=== PATIENT | male | born 1980 | race Caucasian/White ===

== ENCOUNTER 2025-02-17 10:07 | Outpatient (CLI) | payer OTHER, SELFPAY ==
--- NOTE | 2025-02-17 10:15 | ECG_ITS ---
Test Date: 2025-02-17 10:22:43 Measurements Intervals [place] Rate: 76 P: 32 IA: 150 QRS: 4 QRSD: 101 T: 20 QT: 381 QTc: 431 Interpretive Statements SINUS RHYTHM DELAYED PRECORDIAL R/S TRANSITION BASELINE ARTIFACT- I, II, III, AVR, AVL ,AVF, V1 BORDERLINE ECG No previous ECG available for comparison Electronically Signed On 02-17-2025 10:37:52 SE[employer]IC [employer]ANK SETTER by Humphrey Whitney D.O.
== END 2025-02-17 10:08 | disposition home or self-care (01) ==
LOC: ANHSURGERY 10:12
PROVIDERS: PCP Emergency Medicine; Visit Provider Surgery
DX: Z01.818 Encounter for other preprocedural examination (principal); R94.31 Abnormal electrocardiogram [ECG] [EKG]; Z72.0 Tobacco use
CPT/HCPCS: 36415; 86850; 86900; 86901; 93005; 99202; G0463

== ENCOUNTER 2025-02-18 01:31 | Day surgery (SDC) | payer OTHER, SELFPAY ==
[2025-02-15 08:20] VITALS: BMI 48.1
--- NOTE | 2025-02-15 08:33 | PC.NURSE ---
[facility] has started construction of its new state of the art ER which will open Spring 2026. With this, we anticipate parking may be a challenge for some our surgical patients and families. Parking spaces are limited but are available for all Surgical, obstetrics, and ER patients sharing this lot. If you arrive and find you are having a hard time finding a parking space, please note that we understand the challenges, please drive around the hospital and park near Hospital Entrance 1. When you enter this entrance, you can ask a volunteer to direct or take you back to the surgical waiting area to check in. We appreciate everyone?s understanding of these expected challenges while we build for your future. Report to the Outpatient Waiting Room, entrance under the green pavilion located off [address], at time _1200 on date _02/18/25 . Planned Procedure Time: __1400 .? Time changes happen often and if your time is changed the preop area will call you the afternoon before. - You and your visitor will be asked to self-screen and do not enter if you have any COVID symptoms. Please call surgeon if you need to reschedule. - A mask is optional within the hospital at this time. Patients may have clear liquids (water, carbonated beverages, clear teas, apple juice) until 3 hours prior to surgery with a maximum of 20 ounces. - No food from midnight until time of surgery and no smoking, or chewing tobacco (or any form of nicotine). No chewing gum, candy or mints. - Infants may have breast milk until 4 hours before surgery, infant formula 6 hours prior to surgery. - Children will be allowed to drink immediately following surgery.? If applicable, please bring a bottle or sippy cup to assist with drinking. Juice, water, soda, and popsicles are readily available.? For infants on formula, please bring formula the day of surgery.? Pacifiers are allowed. Take only the following medications with a SIP of water on the morning of surgery: N/A DO NOT STOP ANY OF YOUR OTHER PRESCRIPTION MEDICATIONS PRIOR TO SURGERY EXCEPT THE FOLLOWING Hold all vitamins and supplements for 3 days per anesthesiologist. Medications to discontinue per physician N/A Date to take last dose__N/A Please no make-up, nail indonesian, hairspray, perfume, deodorant, or body powder the day of surgery.? No jewelry (including any body piercings) or valuables the day of surgery, leave them at home.? Please take a shower or bath the night before, or the morning of, surgery with an antibacterial soap.? Wear comfortable, loose fitting clothing.? Children are encouraged to wear pajamas. - Jewelry must be removed prior to entering the operating room.? Rings and piercings that are not removed may be cut off. - The hospital will not accept responsibility for valuables.? - Please leave all valuables, including medications, at home the day of surgery. If you are going home after surgery, a licensed van cdl driver must drive you home.? - NO public transportation without another adult if you receive anesthesia. - We recommend that an adult stay with you for 24 hours following discharge. - We also recommend that you do not drive, make important decision, drink alcoholic beverages, or take any drugs that were not prescribed by your health care provider for at least 24 hours after your discharge time. For Pediatric surgeries, we recommend two adults accompany the child home. Follow any additional instructions given to you from your surgeon. Telephone instructions given to Trista and asked if any additional questions and then verbalized understanding. Patient advised to call surgeon office or pre surgery nurse liaison [phone] if any additional questions.
[2025-02-18] VITALS (11 sets, daily range): BP systolic 110–146; BP diastolic 60–94; PULSE 63–78; RESP 16–22; TEMP 36.1–36.3; O2SAT 95–99
--- OUTSIDE RECORDS SUMMARY | 2025-02-18 01:33 | XMS_ITS | Clinical Summary ---
Author Organization [facility] [employer] Address [address] [place] [address] Care Team Providers Care Waste Elimination Name Role Phone Unavailable Primary Care Provider Unavailabl e Source Comments [facility],non-owned Affiliates and Associated Physician Practices is amultiple site organization consisting of ambulatory clinics and hospital sitesin [place], [place], [place] and [place]. This disclosure is being madepursuant to the Care Everywhere program and may not contain all information available regarding this patient. Last updated 17.[facility] Allergies No known active allergies Medications * Be aware that medications may not be up to date on this document. Alwaysverify current medications with the patient. No known medications Social History Tobacco Use Types Packs/Day Years Used Date Smoking Tobacco: Every Day Smokeless Tobacco: Never Alcohol Use Standard Drinks/Week Comments No 0 (1 standard drink = 0.6 oz pur e alcohol) Sex and Gender Information Value Date Recorded Sex Assigned at Not on file Legal Sex Male 12:43 AM CDT Gender Identity Not on file Sexual Orientation Not on file Last Filed Vital Signs Vital Sign Reading Time Taken Comments Blood Pressure 145/85 09/28/2018 3:07 AM CDT Pulse 98 09/28/2018 3:07 AM CDT Temperature 37.2 C (98.9 F) 09/28/2018 12:46 AM CDT Respiratory Rate 12 09/28/2018 3:07 AM CDT Oxygen Saturation 100% 09/28/2018 3:07 AM CDT Inhaled Oxygen Concentration - - Weight - - Height 180.3 cm (5' 11) 09/28/2018 12:46 AM CDT Body Mass Index - - Plan of Treatment Health Maintenance Due Date Last Done Comments LIPID TESTING 1981 HIV SCREENING 1996 HEPATITIS C SCREENING 12/27/1999 DTAP/TDAP/TD VACCINES (1 - Tdap) 2000 HEPATITIS B VACCINE (1 of 3 - 19+ 3-dose series) 2000 HPV VACCINE (1 - 3-dose SCDM series) 2008 DEPRESSION SCREENING 03/11/2024 COVID-19 VACCINE (1 - 2024-2 6 season) 2024 INFLUENZA VACCINE (#1) 2024 ZOSTER VACCINE (1 of 2) 01/01/2032 HIB VACCINE Aged Out No longer eligi ble based on patient's age to complete this topic MENINGOCOCCAL (Group B) VACC INE SHARED DECISION-MAKING Aged Out No longer eligibl e based on patient's age to complete this topic MENINGOCOCCAL GROUPS A/C/Y/W VACCINE Aged Out No longer eligible b ased on patient's age to complete this topic PNEUMOCOCCAL VACCINE Aged Out No long er eligible based on patient's age to complete this topic Insurance [facility] [employer] [facility]
--- OUTSIDE RECORDS SUMMARY | 2025-02-18 01:33 | XMS_ITS | Patient Health Record ---
Author Organization [facility] Address [address] [place] [id number] Support Name Relationship Address Phone NAKIA EDMONDSON Guarantor Unknown Unavailable Reason For Referral No Information Medications Medication SIG (Take, Route, Frequency, Duration) Notes Start Date End Date Status traMADol HCl 50 MG 1 po q 6 hrs prn pain caution sedation 08/27/2014 Active Phenergan 25 mg 1 tab po q 6 hrs prn nausea/vomiting/, may cause drowsiness 08/27/2014 Active Problems Problem Type SNOMED Code ICD Code Onset Dates Problem Status W/U Status Risk Notes Problem Epigastric pain (25784203) Epigastric pain (R10.13) 08/27/2014 Active confirmed Plan Of Treatment No Information Insurance Providers Payer Name Payer Address Payer Phone Subscriber Number Group Number Insured Name Patient Relationship to Insured Coverage Start Date Coverage End Date Migrated Missing Insurance NAKIA EDMONDSON Self - patient is the insured
--- OUTSIDE RECORDS SUMMARY | 2025-02-18 01:33 | XMS_ITS | Patient Health Record ---
Author Organization Formerly [facility], [facility] Address [address] [place] [address] Phone [phone] Care Team Providers Care Sales Administrator Name Role Phone Kelsey Kim Primary Care Provider [phone] Kaylen Theodore APRN Unavailable [phone] Hortencia Hernandez Unavailable [phone] Jessica Bui APRN Unavailable [phone] Yesi Stanley Unavailable [phone] Juanis Sargent Unavailable [phone] Ricarda Souza Unavailable [phone] Allergies No Known Allergies Results Component Value Reference Range Flag Notes Buprenorphine and Metabolite (Urine test) Order date: 09/02/2024 Reviewed date:09/07/2024 08:46:37 AM Interpretation: Performing Lab:[facility], [address], [place], Phone - [phone], Director - PhDAbudu Notes/Report: Clinical Information:[id number] Buprenorphine Positive A Confirmatio n performed by Mass Spectrometry Buprenorphine Positive A Buprenorphine Conf, MS, UR 198 Cutoff=10 ng/mL Norbuprenorphine Positive A Norbuprenorphine Conf, MS, UR 378 Cutoff=10 ng/mL 12 Panel Urine Drug Screen Order date: 05/08/2024 Reviewed date:05/08/2024 09:07:07 AM Interpretation: Performing Lab: Notes/Report: THC neg SE neg MOP (OPI) neg AMP neg MET neg BAR neg BZO neg MDMA neg MTD neg OXY neg PCP neg BUP POS 14 Panel Urine Drug Screen Order date: 01/28/2025 Reviewed date:01/28/2025 10:27:19 AM Interpretation: Performing Lab: Notes/Report: THC neg SE neg MOP (OPI) neg AMP neg MET neg BAR neg BZO neg MDMA neg MTD neg OXY neg PCP neg BUP POS TCA neg FTY neg 14 Panel Urine Drug Screen Order date: 12/30/2024 Reviewed date:12/30/2024 10:21:54 AM Interpretation: Performing Lab: Notes/Report: THC neg SE neg MOP (OPI) neg AMP neg MET neg BAR neg BZO neg MDMA neg MTD neg OXY neg PCP neg BUP POS TCA neg FTY neg 14 Panel Urine Drug Screen Order date: 11/30/2024 Reviewed date:11/30/2024 10:04:28 AM Interpretation: Performing Lab: Notes/Report: THC neg SE neg MOP (OPI) neg AMP neg MET neg BAR neg BZO neg MDMA neg MTD neg OXY neg PCP neg BUP POS TCA neg FTY neg 14 Panel Urine Drug Screen Order date: 10/30/2024 Reviewed date:10/30/2024 09:02:06 AM Interpretation: Performing Lab: Notes/Report: THC neg SE neg MOP (OPI) neg AMP neg MET neg BAR neg BZO neg MDMA neg MTD neg OXY neg PCP neg BUP POS TCA neg FTY neg 14 Panel Urine Drug Screen Order date: 10/02/2024 Reviewed date:10/02/2024 02:43:40 PM Interpretation: Performing Lab: Notes/Report: THC neg SE neg MOP (OPI) neg AMP neg MET neg BAR neg BZO neg MDMA neg MTD neg OXY neg PCP neg BUP POS TCA neg FTY neg 12 Panel Urine Drug Screen Order date: 06/08/2024 Reviewed date:06/08/2024 11:08:47 AM Interpretation: Performing Lab: Notes/Report: THC neg ES neg MOP (OPI) neg AMP neg MET neg BAR neg BZO neg MDMA neg MTD neg OXY neg PCP neg BUP POS 12 Panel Urine Drug Screen Order date: 04/14/2024 Reviewed date:04/14/2024 10:09:09 AM Interpretation: Performing Lab: Notes/Report: THC neg SE neg MOP (OPI) neg AMP neg MET neg BAR neg BZO neg MDMA neg MTD neg OXY neg PCP neg BUP POS 12 Panel Urine Drug Screen Order date: 02/24/2024 Reviewed date:02/24/2024 09:43:47 AM Interpretation: Performing Lab: Notes/Report: THC neg SE neg MOP (OPI) neg AMP neg MET neg BAR neg BZO neg MDMA neg MTD neg OXY neg PCP neg BUP POS 12 Panel Urine Drug Screen Order date: 07/06/2024 Reviewed date:07/06/2024 08:11:49 AM Interpretation: Performing Lab: Notes/Report: THC neg SE neg MOP (OPI) neg AMP neg MET neg BAR neg BZO neg MDMA neg MTD neg OXY neg PCP neg BUP POS [id number] Order date: 04/14/2024 Reviewed date:04/20/2024 08:24:26 AM Interpretation: Performing Lab:[facility], [address], [place], Phone - [phone], Director - PhDAbudu Notes/Report: Clinical Information:[id number] Amphetamines Screen, Urine Negative Rwztyu=193 ng/mL Amphetamine test includes Amphetamine and Methamphetamine. Benzodiazepines Negative Lmjdav=281 ng/mL Cannabinoid Negative Cutoff=50 ng/mL Cocaine (Metab.), Urine Negative Erxejw=819 ng/mL Opiates Negative Qwovpe=888 ng/mL Opiate t est includes Codeine and Morphine only. Oxycodone/Oxymorphone, Urine Negative Ibsdee=031 ng/mL Test includes Oxycodone and Oxymorphone Phencyclidine Negative Cutoff=25 ng/mL Creatinine, Urine 75.9 20.0-300.0 mg/dL pH, Urine 6.1 4.5-8.9 Effective June 08, 2024, this test will be discontinued. Please contact your [facility] office services representative for suggested replacement test options. 12 Panel Urine Drug Screen Order date: 09/02/2024 Reviewed date:09/02/2024 03:25:49 PM Interpretation: Performing Lab: Notes/Report: THC neg SE neg MOP (OPI) neg AMP neg MET neg BAR neg BZO neg MDMA neg MTD neg OXY neg PCP neg BUP POS 12 Panel Urine Drug Screen Order date: 08/04/2024 Reviewed date:08/04/2024 10:08:18 AM Interpretation: Performing Lab: Notes/Report: THC neg SE neg MOP (OPI) neg AMP neg MET neg BAR neg BZO neg MDMA neg MTD neg OXY neg PCP neg BUP POS 12 Panel Urine Drug Screen Order date: 03/19/2024 Reviewed date:03/19/2024 09:58:53 AM Interpretation: Performing Lab: Notes/Report: THC neg SE neg MOP (OPI) neg AMP neg MET neg BAR neg BZO neg MDMA neg MTD neg OXY neg PCP neg BUP POS Reason For Referral No Information Medications Medication SIG (Take, Route, Frequency, Duration) Notes Start Date End Date Diagnosis (ICD Code) Status Buprenorphine HCl-Naloxone HCl 12-3 MG Film 1 film under the tongue and allow to dissolve Sublingual twice a day; Duration: 30 days 01/28/2025 Over weight (ICD_10 - E66.3) Active Buprenorphine HCl-Naloxone HCl 4-1 MG Film 1.5 film under tongue and allow to dissolve completely Sublingual Once a day 11/30/2024 Opioid use disorder (ICD_10 - F11.99) Not-Taking Naloxone HCl 4 MG/0.1ML Liquid as directed Nasally FOR OPIOID OVERDOSE 09/26/2023 Opioid use disorder (ICD_10 - F11.99) Active Famotidine 20 MG Tablet 1 tablet at bedtime as needed Orally Once a day Active Social History Tobacco Use: Social History Observation Description Date Details (start date - stop date) Current Smoker NA - NA Sex Observation Social History Observation Description Sex Observation Male Sexual Orientation Social History Observation Description Sexual Orientation Straight or heterose xual Gender Identity Social History Observation Description Gender Identity Male SDOH Assessments Date Tool Assessment Assessment LOINC Value Assessment Notes Goals Interventions 01/29/20 PRAPARE (LOINC: 64293-9) Total Score: 3 Date Completed/Upda selena: 01/29/20 25 What is your current housing situation? 33841-6 I have housing ([id number]) Lives with Are you worried about losing your housing? 28407-9 No (LA32-8) What is the highest level of school that you have finished? 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 Check all that apply 10854-0 I do not have problems meeting my needs Has lack of transportation kept you from medical appointments, meetings, work or from getting things needed for daily living? 80093-4 No (LA32-8) How often do you see or talk to people that you care about and feel close to? (For example: talking to friends on the phone, visiting friends or family, going to hindu or club meetings) 05990-2 More than 5 times a week (EX18339-1) , family, friends, client states great support system How stressed are you? Stress is when someone feels tense, nervous, anxious, or can\t sleep at night because their mind is troubled 44494-4 Not at all (SX4036-2) In the past year have you spent more than 2 nights in a row in a fdc, usp, shelter center, or juvenile correctional facility? 58246-3 No (LA32-8) Do you feel physically and emotionally safe where you currently live? 08870-1 Yes (LA33-6) In the past year, have you been afraid of your partner or ex-partner? 66187-6 No (LA32-8) Are you a refugee? No What country are you from? [facility] PRAPARE Score: 3 Social History Social Determinants Social Info Question Answer Notes PRAPARE Date Completed/Updated: 01/28/2025 What is your current housing situation? I have housing Lives with Are you worried about losing your housing? No What is the highest level of school that you have finished? 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 Check all that apply I do not have problems meeting my needs Has lack of transportation k ept you from medical appointments, meetings, work or from getting things needed for daily living? No How often do you see or talk to people that you care about and feel close to? (For example: talking to friends on the phone, visiting friends or family, going to hindu or club meetings) More than 5 times a week , family, friends, client states great support system How stressed are you? Stress is when someone feels tense, nervous, anxious, or can\t sleep at night because their mind is troubled Not at all In the past year have you sp ent more than 2 nights in a row in a fdc, usp, shelter center, or juvenile correctional facility? No Are you a refugee? No What country are you from? [place] Do you feel physically and emotionally safe where you currently live? Yes In the past year, have you b een afraid of your partner or ex-partner? No PRAPARE Score: 3 Miscellaneous Social Info Question Answer Notes Method of learning: Preferred method of learning: Read ing Primary Social History Social Info Question Answer Notes Living Arrangement Living Arrangement: Independent Cynthia ing Is this a supportive environment? Yes Single Question Alcohol Screening How many times in the past year have you had (4 for women, or 5 for men) or more drinks in a day? 0 Employment Status Employment Status: Unemployed Illicit Substance Usage Illicit Substance Usage: Yes Alcohol Use Alcohol Use Frequency: Never Tobacco Use: Social Info Question Answer Notes Tobacco Control (Standard) Tobacco use: Current smoker Problems Problem Type SNOMED Code ICD Code Dates Problem Status W/U Status Risk Notes Problem Morbid obesity (310903804) Morbid obesity (E66.01) Added On: 024 Active confirmed Problem Overweight (021163937) Over weight (E66.3) Added On: 025 Active confirmed Problem Body mass index 40+ - severely obese (706721377) Morbid obesity with BMI of 40.0-44.9, adult (Z68.41) Added On: 024 Active confirmed Problem Tobacco use (016188240) Tobacco use disorder (F17.200) Added On: 024 Active confirmed Problem Cigarette smoker (37211804) Cigarette smoker (F17.210) Added On: 025 Active confirmed Problem Opioid use disorder (7565812708) Opioid use disorder (F11.99) Added On: 024 Active confirmed Vital Signs Vital Sign Value Notes Appt Date Heart Rate 81 /min 01/28/2025 Temperature 98.1 degrees Fahrenheit 01/10 Respiratory Rate 16 /min 01/28/2025 Oximetry 98 % 01/28/2025 Blood pressure diastolic 80 mm Hg Height 72 in in 01/28/2025 Blood pressure systolic 126 mm Hg 01/10 Weight 344.8 lbs lbs 01/28/2025 BMI 46.76 kg/m2 01/28/2025 Encounters Date Time Type Facility Location Provider Diagnosis 02/24/20 09:40 AM Office Visit, Est Pt., Level 3 (31852) [address] [address] Kelsey Kim Opioid use disorder F11.99 ; Morbid obesity E66.01 and Tobacco use disorder F17.200 03/19/19 25 10:00 AM Office Visit, Est Pt., Level 3 (82000) [address] [address] Kelsey Kim Opioid use disorder F11.99 04/14/19 25 10:00 AM Office Visit, Est Pt., Level 3 (42858) [address] [address] Kelsey Kim Opioid use disorder F11.99 05/08/19 25 09:00 AM MEDICAL NUTRITION, [facility] [place] ([address]) [address] [address] Kaylen Theodore Opioid use disorder F11.99 ; Morbid obesity with BMI of 40.0-44.9, adult Z68.41 and Tobacco use disorder F17.200 06/09/19 25 10:40 AM Office Visit, Est Pt., Level 3 (09676) [address] [address] Kelsey Kim Opioid use disorder F11.99 07/07/19 25 08:20 AM Office Visit, Est Pt., Level 3 (03329) [facility] [address] [address] Kelsey Mcadamslufialison Opioid use disorder F11.99 and Over weight E66.3 08/05/19 09:40 AM Office Visit, Est Pt., Level 3 (21444) [address] [address] Kelsey Pemalufik Opioid use disorder F11.99 and Over weight E66.3 09/03/19 03:00 PM Office Visit, Est Pt., Level 3 (14618) [address] [address] Kelsey Pemalufik Opioid use disorder F11.99 and Over weight E66.3 10/03/19 02:40 PM [employer] ([address]90) [address] [address] Kelsey Mcadamslufik Opioid use disorder F11.99 and Over weight E66.3 10/31/19 09:00 AM [place] ([address]) Formerly [facility], [facility] [address], [place] [address] Jessicaapolonia Chappellngco Opioid use disorder F11.99 ; Over weight E66.3 and Cigarette smoker F17.210 12/01/19 09:40 AM Office Visit, Est Pt., Level 3 (18026) [facility] [address] [address] Ricarda Libby Opioid use disorder F11.99 12/31/19 10:20 AM Office Visit, Est Pt., Level 3 (63279) [address] [address] Ricarda Libby Opioid use disorder F11.99 01/29/20 10:00 AM Office Visit, Est Pt., Level 3 (69318) [address] [address] Juanis Sargent Over weight E66.3 and Opioid use disorder F11.99 01/29/20 11:40 AM Office Visit [facility] [address] [place] [address] Yesi Stanley 05/08/19 09:30 AM Telephone Encounter [facility] [address] [place] [address] Kaylen Theodore Opioid use disorder F11.99 05/11/19 10:11 AM Telephone Encounter [facility] [place] [address] Kelsey Kim Opioid use disorder F11.99 09/03/19 25 03:55 PM Telephone Encounter [address] [place] [address] Kelsey Kim Opioid use disorder F11.99 09/05/19 01:46 PM Telephone Encounter [facility] [place] [address] Hortencia Hernandez Opioid use disorder F11.99 09/09/19 03:47 PM Telephone Encounter [address] [place] [address] Kelsey Kim 05/08/19 04:26 PM Web Encounter [address] [place] [address] Kelsey Kim 05/12/19 08:32 AM Web Encounter [address] [place] [address] Kelsey Kim 09/05/19 11:05 AM Web Encounter [address] [place] [address] Kelsey Kim Assessments Encounter Date Diagnosis (ICD Code) Assessment Notes Treatment Notes Section Notes 09/02/2024 Over weight (ICD-10 - E66.3) 10/02/2024 Over weight (ICD-10 - E66.3) 10/30/2024 Over weight (ICD-10 - E66.3) 01/28/2025 Over weight (ICD-10 - E66.3) 02/24/2024 Morbid obesity (ICD-10 - E66.01) 09/04/2024 Opioid use disorder (ICD-10 - F11.99) 10/02/2024 Opioid use disorder (ICD-10 - F11.99) 10/30/2024 Opioid use disorder (ICD-10 - F11.99) 11/30/2024 Opioid use disorder (ICD-10 - F11.99) CancelRx Response got Denied on 2024-11-30 10:52:29 for 'Buprenorphine HCl-Naloxone HCl 12-3 MG Film'Pharmacy Notes: Other (Denied): renewing rx 12/30/2024 Opioid use disorder (ICD-10 - F11.99) 01/28/2025 Opioid use disorder (ICD-10 - F11.99) 05/10/2024 Opioid use disorder (ICD-10 - F11.99) 06/08/2024 Opioid use disorder (ICD-10 - F11.99) 07/06/2024 Opioid use disorder (ICD-10 - F11.99) 08/04/2024 Opioid use disorder (ICD-10 - F11.99) 09/02/2024 Opioid use disorder (ICD-10 - F11.99) 09/02/2024 Opioid use disorder (ICD-10 - F11.99) 02/24/2024 Opioid use disorder (ICD-10 - F11.99) 03/19/2024 Opioid use disorder (ICD-10 - F11.99) 04/14/2024 Opioid use disorder (ICD-10 - F11.99) 05/08/2024 Opioid use disorder (ICD-10 - F11.99) 05/08/2024 Opioid use disorder (ICD-10 - F11.99) CancelRx Response got Denied on 2024-05-11 10:36:39 for 'Buprenorphine HCl-Naloxone HCl 12-3 MG Film'Pharmacy Notes: Prescription not found. Contact Pharmacy by other means 10/30/2024 Cigarette smoker (ICD-10 - F17.210) 02/24/2024 Tobacco use disorder (ICD-10 - F17.200) 07/06/2024 Over weight (ICD-10 - E66.3) 08/04/2024 Over weight (ICD-10 - E66.3) 05/08/2024 Morbid obesity with BMI of 40.0-44.9, adult (ICD-10 - Z68.41) 05/08/2024 Tobacco use disorder (ICD-10 - F17.200) 02/24/2024 Other Patient agrees to take medication as prescribed. Discussed medication side effects, adverse effects, risks, benefits, as well as interactions. Encouraged non-use of opioids and other illicit substances. Has naloxone. Discontinuing buprenorphine increases the risk of overdose upon return to illicit opioid use. Use of alcohol or benzodiazepines with buprenorphine increases the risk of overdose and . Education provided about safe storage of medications. Encouraged participation in recovery groups/counseling services. Contact office with questions or concerns. 03/19/2024 Other Patient agrees to take medication as prescribed. Discussed medication side effects, adverse effects, risks, benefits, as well as interactions. Encouraged non-use of opioids and other illicit substances. Has naloxone. Discontinuing buprenorphine increases the risk of overdose upon return to illicit opioid use. Use of alcohol or benzodiazepines with buprenorphine increases the risk of overdose and . Education provided about safe storage of medications. Encouraged participation in recovery groups/counseling services. Contact office with questions or concerns. 04/14/2024 Other Declines psychiatric referral today. Discuss lab work at next visit. Patient agrees to take medication as prescribed. Discussed medication side effects, adverse effects, risks, benefits, as well as interactions. Encouraged non-use of opioids and other illicit substances. Has naloxone. Discontinuing buprenorphine increases the risk of overdose upon return to illicit opioid use. Use of alcohol or benzodiazepines with buprenorphine increases the risk of overdose and . Education provided about safe storage of medications. Encouraged participation in recovery groups/counseling services. Contact office with questions or concerns. 05/08/2024 Other Discussed medication side effects, adverse effects, risks, benefits, as well as interactions. Encouraged non-use of opioids. Has naloxone. Recommended participation in recovery groups/counseling services. Agrees to contact office with questions or concerns. 06/08/2024 Other Patient agrees to take medication as prescribed. Discussed medication side effects, adverse effects, risks, benefits, as well as interactions. Encouraged non-use of opioids and other illicit substances. Has naloxone. Discontinuing buprenorphine increases the risk of overdose upon return to illicit opioid use. Use of alcohol or benzodiazepines with buprenorphine increases the risk of overdose and . Education provided about safe storage of medications. Encouraged participation in recovery groups/counseling services. Contact office with questions or concerns. 07/06/2024 Other Patient agrees to take medication as prescribed. Discussed medication side effects, adverse effects, risks, benefits, as well as interactions. Encouraged non-use of opioids and other illicit substances. Has naloxone. Discontinuing buprenorphine increases the risk of overdose upon return to illicit opioid use. Use of alcohol or benzodiazepines with buprenorphine increases the risk of overdose and . Education provided about safe storage of medications. Encouraged participation in recovery groups/counseling services. Contact office with questions or concerns. 08/04/2024 Other *Declines referrals for psychiatry/therapy today. Will continue to discuss with patient. Patient agrees to take medication as prescribed. Discussed medication side effects, adverse effects, risks, benefits, as well as interactions. Encouraged non-use of opioids and other illicit substances. Has naloxone. Discontinuing buprenorphine increases the risk of overdose upon return to illicit opioid use. Use of alcohol or benzodiazepines with buprenorphine increases the risk of overdose and . Education provided about safe storage of medications. Encouraged participation in recovery groups/counseling services. Contact office with questions or concerns. 09/02/2024 Other Patient agrees to take medication as prescribed. Discussed medication side effects, adverse effects, risks, benefits, as well as interactions. Encouraged non-use of opioids and other illicit substances. Has naloxone. Discontinuing buprenorphine increases the risk of overdose upon return to illicit opioid use. Use of alcohol or benzodiazepines with buprenorphine increases the risk of overdose and . Education provided about safe storage of medications. Encouraged participation in recovery groups/counseling services. Contact office with questions or concerns. 10/02/2024 Other Patient agrees to take medication as prescribed. Discussed medication side effects, adverse effects, risks, benefits, as well as interactions. Encouraged non-use of opioids and other illicit substances. Has naloxone. Discontinuing buprenorphine increases the risk of overdose upon return to illicit opioid use. Use of alcohol or benzodiazepines with buprenorphine increases the risk of overdose and . Education provided about safe storage of medications. Encouraged participation in recovery groups/counseling services. Contact office with questions or concerns. 10/30/2024 Other Patient agrees to take medication as prescribed. Discussed medication side effects, adverse effects, risks, benefits, as well as interactions. Encouraged non-use of opioids. Encouraged participation in recovery groups. Patient may contact office with questions or concerns. 11/30/2024 Other Patient agrees to take medication as prescribed. Discussed medication side effects, adverse effects, risks, benefits, as well as interactions. Encouraged non-use of opioids and other illicit substances. Has naloxone. Discontinuing buprenorphine increases the risk of overdose upon return to illicit opioid use. Use of alcohol or benzodiazepines with buprenorphine increases the risk of overdose and . Education provided about safe storage of medications. Encouraged participation in recovery groups/counseling services. Contact office with questions or concerns. Patient may self-administer their own medications or may self-administer their own oral medications per [facility] Protocol. 12/30/2024 Other Patient agrees to take medication as prescribed. Discussed medication side effects, adverse effects, risks, benefits, as well as interactions. Encouraged non-use of opioids and other illicit substances. Has naloxone. Discontinuing buprenorphine increases the risk of overdose upon return to illicit opioid use. Use of alcohol or benzodiazepines with buprenorphine increases the risk of overdose and . Education provided about safe storage of medications. Encouraged participation in recovery groups/counseling services. Contact office with questions or concerns. Patient may self-administer their own medications or may self-administer their own oral medications per [facility] Protocol. 01/28/2025 Other 01/28/2025 Other Mining Consultant called [facility] m[facility]od today to complete PRAPARE andPHQ-9 forms and see if client needed any further assistance. Mining Consultant was able to successfully complete these forms with client. Client was agreeable and receptive to all forms submitted and information provided. Client denies need for any additional services or resource at this time stating Life ir pretty good at the moment and I have a great support system.. Mining Consultant will follow up in person or via phone call prn. Plan Of Treatment No Information Medical (General) History Medical History History ICD Code OUD left clubfoot at , leg length discr epancy Surgical History Surgery Date(Month/Year) Club Foot Hospitalization History Reason Date(Month/Year) Detox x3
--- NOTE | 2025-02-18 12:22 | P.HP_ITS ---
H&P: HPI History of Present Illness Date/Time: 02/18/25 12:22 Chief Complaint: incarcerated umbilical hernia Narrative: Pascual is a 43 y/o male who presents for evaluation of an umbilical hernia at the request of Dr. Mitchell. He reports symptoms first noticing this about 8 years ago. He feels it has increased in size. He denies overlying skin changes. Bulge is reducible when laying down. He is having regular BM's without difficulty. Review of Systems Review of Systems: All systems reviewed & are unremarkable except as noted in HPI and below PMFSH Past Medical History Medical History Headache GERD (gastroesophageal reflux disease) Anxiety Family History Family History Father Depression Hypertension Grandparent Depression Hypertension Mother Hypertension Social History Social History Smoking packs per day: 1 Smoking cigarettes per day: 20.0 Years smoked: 20 Smoking pack-years: 20.00 Smoking status: Current every day smoker Tobacco type: cigarettes Alcohol intake: former Substance use: former Substance use type: heroin, opiates and painkillers Other substance usage details: 8 years ago Lack of Transportation: No Lack of Food: Sometimes True Current Housing: I Have Housing Concerned About Future Housing: No Difficulty Paying Gas/Electric Bills: YES Difficulty Paying for Meds: No Currently Unemployed: No Education: Associate Degree Difficulty w/ Childcare or Family Care: No Living arrangements: with family Spiritual care concerns: No Agree to blood products: Yes Meds Home Medications and Allergies Home Medications ?Medication ?Instructions ?Recorded ?Confirmed ?Type buprenorphine 12 mg-naloxone 3 mg 2 film buccal Q24H 0 10/07/24 02/15/25 History sublingual film Allergies Allergy/AdvReac Type Severity Reaction Status Date / Time No Known Allergies Allergy Verified 02/15/25 08:17 Exam Const: General: cooperative, comfortable and no acute distress Resp: Auscultation: clear to auscultation bilaterally Cardio: Rate: regular rate Rhythm: regular rhythm GI: Inspection: normal to inspection, non-distended and visible herniation GI Palp: Yes abdominal tenderness and Yes Hernia present Other: incarcerated umbilical hernia measuring 5 cm Assessment and Plan Assessment and plan (1) Incarcerated umbilical hernia: Code(s): K42.0 - Umbilical hernia with obstruction, without gangrene Status: Acute Assessment and Plan: set up for robotic assisted repair with mesh
--- NOTE | 2025-02-18 12:24 | WPDHPUPDATE1 ---
History and Physical Update Update Date/Time: 02/18/25 12:24 History and Physical has been reviewed, including an updated exam of the patient. There are NO changes in the patient's condition. Risks, benefits, and alternatives have been discussed and questions answered. Patient agrees to proceed with procedure.
[2025-02-18] MEDS: LACTATED RINGERS 1,000 ML 30 ML IV CONT (13:15)
[2025-02-18] MEDS: ACETAMINOPHEN 500 MG TABLET 1000 MG PO (13:18)
[2025-02-18] MEDS: KETOROLAC 15 MG/ML VIAL (*BKC) IV PUSH ×2 (13:19→17:29)
--- NOTE | 2025-02-18 14:00 | WPDANESEPP ---
Anes - Eval Pre Procedure Procedure: Operation Date: 02/18/25 14:00 Proposed Procedures p Robotic Incarcerated Umbilical Hernia Hernia Repair with Mesh - Renata Maldonado MD Date/Time: 02/18/25 14:00 Pre Op Diagnosis: incarcerated umbilical hernia Patient Data Age: 44 Gender: M Height: 1.82 m Weight: 155.8 kg Last Vital Signs Temp 36.3 C L 02/18/25 12:35 Pulse 78 02/18/25 12:35 Resp 18 02/18/25 12:35 BP 146/94 H 02/18/25 12:35 Pulse Ox 97 02/18/25 12:35 O2 Del Method Room Air 02/18/25 12:35 Allergies Allergy/AdvReac Type Severity Reaction Status Date / Time No Known Allergies Allergy Verified 02/18/25 13:00 Home Medications ?Medication ?Instructions ?Recorded ?Confirmed ?Type buprenorphine 12 mg-naloxone 3 mg 2 film buccal Q24H 10/07/24 02/15/25 History sublingual film Patient hx anesthesia problems: none Family hx anesthesia problems: none Results Review: All pre-operative results and documents have been reviewed as part of the pre-operative evaluation. [facility] Past Medical History Medical History Headache GERD (gastroesophageal reflux disease) Anxiety Family History Family History Father Depression Hypertension Grandparent Depression Hypertension Mother Hypertension Social History Social History Smoking packs per day: 1 Smoking cigarettes per day: 20.0 Years smoked: 20 Smoking pack-years: 20.00 Smoking status: Current every day smoker Tobacco type: cigarettes Alcohol intake: former Substance use: former Substance use type: heroin, opiates and painkillers Other substance usage details: 8 years ago Lack of Transportation: No Lack of Food: Sometimes True Current Housing: I Have Housing Concerned About Future Housing: No Difficulty Paying Gas/Electric Bills: YES Difficulty Paying for Meds: No Currently Unemployed: No Education: Associate Degree Difficulty w/ Childcare or Family Care: No Living arrangements: with family Spiritual care concerns: No Agree to blood products: Yes Exam Day of Procedure 02/18/25 14:00
[2025-02-18] MEDS: ceFAZolin 3 GM/D5W 100 ML 100 ML IVPB (14:39)
[2025-02-18] MEDS: BUPIVACAINE/EPINEPHRINE 0.5% 50 ML VIAL 30 ML INFILTRATE (14:56)
--- NOTE | 2025-02-18 16:12 | W.PM.PROC2 ---
Procedure Note - Detailed Date of Procedure 02/18/25 Pre-op Diagnosis incarcerated umbilical hernia with defect measuring 5 cm Post-op Diagnosis Same Procedure Performed Robotic assisted repair recurrent incarcerated umbilical hernia with defect measuring 5 cm with mesh Surgeon Renata Maldonado MD Anesthesia General Indications 44-year-old male with incarcerated umbilical hernia measuring 5 cm Findings incarcerated periumbilical hernia measuring approximately 5 cm Description of Procedure The patient was taken the operating room placed in the supine position. After adequate induction of general anesthesia, the patient was prepped and draped in normal sterile fashion. A time-out was then done to verify the patient's identity as well as the procedure being performed. I began by making a 8 mm incision in the left upper quadrant. Through this, a Veress needle was placed into the peritoneal cavity and CO2 gas was insufflated. After adequate pneumoperitoneum was achieved, a 8 mm trocar was placed through this incision. I then placed the laparoscope through this trocar site and under direct visualization I placed a 8 mm port in the left mid abdomen as well as an additional 8 mm port in the left lower abdomen. The robot was then docked to the 3 port sites. I then went to the robotic console. I began by identifying the hernia. A moderate-sized incarcerated hernia was noted in the periumbilical region. Using graspers, I was able to reduce this hernia. The hernia was noted to contain a large amount of preperitoneal fat and omentum. Once reduced, I also reduced and dissected out the hernia sac. I then closed the approximately 5 cm defect with 0 strata fix suture. I then placed a 15 x 10 cm round Ventralight mesh into the abdominal cavity. The positional stitch was placed in the middle of the mesh and brought up centering the mesh over the defect. Once this was done, I used 2 0 V lock suture x 2 to circumferentially suture the mesh to the abdominal. Once the mesh was completely sutured in, I was happy with our tension-free repair. The mesh was noted to have good overlap of the defect. At this point, the robot was undocked and all ports were removed. All port sites were then closed with 4 O Monocryl subcuticular suture. The patient tolerated the procedure well, is extubated in the operating room postoperative, and transferred to the recovery room in stable condition. Implants 15 x 10 cm Ventralight mesh in the underlay position Estimated Blood Loss 10 Drains No Packing No Pathology None sent Complications No immediate complications Condition Stable Disposition PACU [facility] Billing Surgery - Charge Forward: Surgery Billing
--- NOTE | 2025-02-18 17:45 | SUR.PHASEII ---
Per anesthesia okay for patient to take home suboxone. Patient took it at this time.
[2025-02-18] MEDS: HYDROmorphone HCL INJ (*CRX) 1 MG/ML SYR 0.5 MG IV PUSH ×2 (18:48→18:59)
== END 2025-02-18 19:24 | disposition home or self-care (01) ==
PROVIDERS: PCP Emergency Medicine; Visit Provider Surgery
PROC: (CPT 49594; principal; 2025-02-18 14:00)
DX: K42.0 Umbilical hernia with obstruction, without gangrene (principal); K21.9 Gastro-esophageal reflux disease without esophagitis; F17.210 Nicotine dependence, cigarettes, uncomplicated
CPT/HCPCS: 49594; S2900; A9270; C1781; J0330; J0690; J1100; J1171; J1885; J2003; J2250; J2405; J2704; J7120